=== PATIENT | male | born 1975 | race American Indian/Alaskan Native ===

== ENCOUNTER 2022-08-15 15:38 | Emergency (ER) | payer SELFPAY ==
--- NOTE | ~2022-08-15 | US_ITS ---
EXAMINATION: US ABDOMEN LIMITED CLINICAL INFORMATION: Upper abdominal pain. Assess gallbladder. COMPARISON: None available. TECHNIQUE: Real-time imaging of the right upper quadrant abdomen is limited to the gallbladder and common duct. FINDINGS: GALLBLADDER: The gallbladder is distended normally. The lumen is anechoic. There is no stone or sludge. No gallbladder wall thickening or subserosal edema or pericholecystic fluid. Negative sonographic Beard's sign. COMMON BILE DUCT: Normal in caliber measuring 0.4 cm in diameter. US/US abdomen limited IMPRESSION: No cholelithiasis, gallbladder wall thickening, or common ductal dilatation.
[2022-08-15 15:46] VITALS: BP 109/82; PULSE 109; RESP 19; TEMP 36.6; O2SAT 99; BMI 25.1
--- NOTE | 2022-08-15 15:53 | ED_ITS ---
[facility] - General Adult General Chief complaint: Abdominal Pain Stated complaint: severe stomach pains Time Seen by Provider: 08/15/22 17:57 Source: patient Mode of arrival: ambulatory History of Present Illness HPI narrative: 47-year-old male who denies any past medical history, occasional alcohol use, denies any IVDA and states that he has had some upper mid abdominal discomfort and not had a bowel movement for 2 days and denies any nausea, vomiting, diarrhea, fevers, chills, urinary symptoms and denies any history of renal colic or intra-abdominal surgeries. Related Data Allergies Allergy/AdvReac Type Severity Reaction Status Date / Time shrimp Allergy Angioedema Verified 08/15/22 15:46 Review of Systems Review of Systems: Pertinent positives and negatives as stated in [facility] Past Medical History Source: nursing notes reviewed Social History Social History Advance Directives: No Advance Directives Information Provided: Yes Physical Exam ED Vital Signs: Vital Signs - 24 hr 08/15/22 15:46 Temperature 98 F Pulse Rate 109 H Respiratory Rate 19 Blood Pressure 109/82 Pulse Oximetry 99 Oxygen Delivery Method Room Air BMI result Body Mass Index 25.1 VITAL SIGNS: Reviewed. GENERAL: Well developed, well nourished, in no acute distress. HEAD: Normocephalic/atraumatic EYES: PERRLA, EOMI EARS: Ext canals without abnormality NOSE: Nares patent bilateral OROPHARYNX: no oral lesions noted, posterior pharynx clear NECK: Supple, no adenopathy LUNGS: Normal breath sounds. No adventitious sounds or accessory muscle use. SpO2<99> CARDIOVASCULAR: Regular rate and rhythm without noted murmurs ABDOMEN: Soft, minimal mid upper abdominal discomfort without rebound, no palpable masses, no evidence of umbilical hernias, non-distended with bowel sounds. MUSCULOSKELETAL: No tenderness, deformities, or effusions noted on gross inspec tion. EXTREMITIES: No cyanosis, clubbing or edema. SKIN: Inspection of the skin reveals no rashes NEUROLOGIC: Alert and oriented x 4. Strength and sensation to light touch were grossly intact x 4. Course Course Course Narrative: RME- 47-year-old male presents for evaluation of upper abdominal pain with nausea. He also complains of heartburn. Symptoms appear to be worse after eating. Labs ordered Medical Decision Making Medical Decision Making [facility] Narrative: 47-year-old male with history and clinical presentation after review of all investigations most consistent with suspected constipation as in the absence leukocytosis, elevated temperature and clinical exam it is not consistent with a n appendicitis or cholecystitis although ultrasound was negative for evidence to suggest cholecystitis. No evidence to suggest pancreatitis, there is a possibility of mild gastritis but gave patient instructions regarding constipation and he is otherwise discharged home in stable condition. Findings also not consistent with a renal colic or obstruction. Differential Diagnosis Please see the discussion above Lab Data Please see the discussion above 08/15/22 15:59 08/15/22 15:59 Labs: Lab Results 08/15/22 08/15/22 Range/Units 15:59 15:59 WBC 7.2 (4.8-10.8) X10*3/uL RBC 5.80 (4.60-5.80) X10*6/uL Hgb 15.4 (14.0-18.0) g/dl Hct 46.0 (42.0-52.0) % MCV 79.3 L (80.0-98.0) fL MCH 26.6 L (27.0-33.0) pg MCHC 33.5 (31.0-36.0) g/dl RDW 13.6 (11.0-16.0) % Plt Count 291 (160-400) X10*3/uL MPV 10.7 (9.4-12.4) fL Immature Gran % (Auto) 0.4 (0.0-0.4) % Neut % (Auto) 51.1 (45-73) % Lymph % (Auto) 36.1 (20-40) % [place] % (Auto) 9.2 (2-11) % Eos % (Auto) 2.4 (0-4) % Baso % (Auto) 0.8 (0-2) % Lymph # (Auto) 2.6 (1.2-4.9) X10*3/uL [place] # (Auto) 0.7 (0.1-1.2) X10*3/uL Eos # (Auto) 0.2 (0.0-0.4) X10*3/uL Baso # (Auto) 0.1 (0.0-0.2) X10*3/uL Abs Immat Gran (auto) 0.03 (0.00-0.03) X10*3/uL Absolute Neuts (auto) 3.7 (2.0-8.3) x10*3/uL Absolute Nucleated RBC 0.000 (0.0-0.012) X10*3/uL Nucleated RBC % (auto) 0.0 (0.0-0.2) /100WBC Sodium 138 (135-145) mmol/L Potassium 4.2 (3.3-5.1) mmol/L Chloride 105 (96-108) mmol/L Carbon Dioxide 24 (22-29) mmol/L Anion Gap 13 (12-20) BUN 7 L (9-16) mg/dL Creatinine 1.03 (0.5-1.4) mg/dL Estim Creat Clear Calc 90.5 Estimated GFR > 60 Random Glucose 106 (60-115) mg/dL Calcium 9.6 (8.4-10.2) mg/dL Total Bilirubin 1.9 H (0.0-1.0) mg/dL AST 20 (5-37) U/L ALT 24 (0-40) U/L Alkaline Phosphatase 67 (39-117) U/L Total Protein 6.5 (6.5-8.0) g/dL Albumin 4.3 (3.5-5.0) g/dL Lipase 37 (8-78) U/L Radiology Impression Radiologist Impression: My interpretation is in agreement with radiology's impression Discharge Plan Discharge Clinical Impression: Constipation, Abdominal discomfort, Gastritis Patient Disposition: Home, Self-Care Instructions: Constipation (ED), High Fiber Diet (ED), Fleet Enema (ED), Diet for Stomach Ulcers and Gastritis (ED), Gastritis (ED) Additional Instructions: 1. Please increase the amount of water intake over the next 2-3 days, watch your dietary consumption and please review the recommendations for gastritis. 2. Follow-up with your primary care provider in the next 2-3 days. 3. Recommend [id number] MiraLax, daily, and till you began having soft daily bowel movements. Return to the ER for any worsening symptoms. Stand Alone Forms: Work/School Release
[2022-08-15 16:03] LABS: MANUAL DIFF FLAG NO
[2022-08-15 16:06] LABS: Basophils Absolute Auto 0.1 X10*3/uL (0.0-0.2); Basophils Percent Auto 0.8 % (0-2); Eosinophils Absolute Auto 0.2 X10*3/uL (0.0-0.4); Eosinophils Percent Auto 2.4 % (0-4); Hemoglobin 15.4 g/dl (14.0-18.0); Imm Gran Abs Auto 0.03 X10*3/uL (0.00-0.03); Imm Gran Pct Auto 0.4 % (0.0-0.4); Lymphocytes Absolute Auto 2.6 X10*3/uL (1.2-4.9); Lymphocytes Percent Auto 36.1 % (20-40); Mean Corpuscular HGB Conc 33.5 g/dl (31.0-36.0); Mean Corpuscular Hemoglobin 26.6 pg (27.0-33.0); Mean Corpuscular Volume 79.3 fL (80.0-98.0); Mean Platelet Volume 10.7 fL (9.4-12.4); Monocytes Absolute Auto 0.7 X10*3/uL (0.1-1.2); Monocytes Percent Auto 9.2 % (2-11); Neutrophils Absolute Auto 3.7 x10*3/uL (2.0-8.3); Neutrophils Percent Auto 51.1 % (45-73); Platelet Count 291 X10*3/uL (160-400); Red Cell Distribution Width 13.6 % (11.0-16.0); White Blood Count 7.2 X10*3/uL (4.8-10.8)
[2022-08-15 16:19] LABS: Alanine Aminotransferase 24 U/L (0-40); Albumin Level 4.3 g/dL (3.5-5.0); Alkaline Phosphatase 67 U/L (39-117); Anion Gap 13 (12-20); Aspartate Amino Transferase 20 U/L (5-37); Bilirubin Total 1.9 mg/dL (0.0-1.0); Blood Urea Nitrogen 7 mg/dL (9-16); Calcium 9.6 mg/dL (8.4-10.2); Carbon Dioxide 24 mmol/L (22-29); Chloride 105 mmol/L (96-108); Creatinine Clr Calc Pharmacy 90.5; Estimated Glomerular Filt Rate > 60; Glucose Random 106 mg/dL (60-115); Lipase 37 U/L (8-78); Potassium 4.2 mmol/L (3.3-5.1); Sodium 138 mmol/L (135-145); Total Protein 6.5 g/dL (6.5-8.0)
== END 2022-08-15 19:08 | disposition home or self-care (01) ==
PROVIDERS: Physician Assistant; Emergency Provider Student in an Organized Health Care Education/Training Program
DX: K59.00 Constipation, unspecified (principal); R10.10 Upper abdominal pain, unspecified; K29.70 Gastritis, unspecified, without bleeding; F19.10 Other psychoactive substance abuse, uncomplicated
CPT/HCPCS: 36415; 76705; 80053; 83690; 85025; 99282; 99284

== ENCOUNTER 2022-08-27 16:45 | Emergency (ER) | payer SELFPAY ==
[2022-08-27 17:09] VITALS: BP 134/85; PULSE 114; RESP 20; TEMP 36.4; O2SAT 97; BMI 23.3
--- NOTE | 2022-08-27 17:11 | ED.GENADULT ---
HPI - General Adult General Chief complaint: Dental/Oral Stated complaint: toothache Time Seen by Provider: 08/27/22 17:09 Source: patient, RN notes reviewed and old records reviewed Mode of arrival: ambulatory Limitations: no limitations History of Present Illness HPI narrative: Patient reports left dental pain and facial pain for the last 4 days. Patient reports that he fractured a tooth of the left lower jaw ??eating hard candy. ? He now has 10/10 pain leading to his left ear Denies any pus or drainage from the tooth No difficulty swallowing or breathing Related Data Previous Rx's Medication Instructions Recorded amoxicillin 500 mg tablet 500 mg PO TID #21 tabs 08/27/22 ibuprofen 600 mg tablet 600 mg PO TID PRN pain #20 tabs 08/27/22 oxycodone 5 mg tablet 5 mg PO Q6H PRN severe pain (scale 08/27/22 score 7-10) #12 tabs Allergies Allergy/AdvReac Type Severity Reaction Status Date / Time shrimp Allergy Angioedema Verified 08/27/22 17:13 Review of Systems ENT: Denies ear discharge, Reports otalgia, Reports facial pain and Reports mouth pain PMFSH Social History Social History Advance Directives: No Advance Directives Information Provided: Yes Physical Exam ED Vital Signs: Vital Signs - 24 hr 08/27/22 17:09 Temperature 97.6 F Pulse Rate 114 H Respiratory Rate 20 Blood Pressure 134/85 Pulse Oximetry 97 Oxygen Delivery Method Room Air BMI result Body Mass Index 23.3 Const General: healthy appearing, comfortable, no acute distress, alert and awake Nutritional Appearance: well nourished Orientation/consciousness: patient oriented x3 HENMT Other: Dental fracture to the left 1st molar on the lower drop. Minimal surrounding erythema, no clear abscess, no drainage. Head: Yes normocephalic and Yes atraumatic Ears: external ears normal, TM's normal bilaterally, TM normal on the right, TM normal on the left and EAC's normal Eyes Eyelids: Yes eyelids normal Conjunctivae: conjunctivae normal Sclerae: sclerae normal Corneas: corneas normal Pupils: Equal, round and reactive pupils present EOM: EOMs intact bilaterally Resp Effort & Inspection: normal respiratory effort, able to speak in complete sentences, no audible wheezes and not labored Auscultation: clear to auscultation bilaterally Skin General skin exam: no rashes or lesions noted and elasticity normal Neuro General: patient oriented x3 Cranial nerves: Yes Equal, round and reactive pupils present and Yes Bilaterally intact EOM present Cognition (Neuro): normal cognition Extrem Other: Moving all extremities well without any obvious deformities Medical Decision Making Medical Decision Making MDM Narrative: Patient has acute dental trauma dental fracture from chin and candy. He will be treated with amoxicillin for likely infection and referred to his dentist. He was treated with amoxicillin analgesia Differential Diagnosis Acute dental trauma Facial pain Otitis media Otitis externa Atypical facial pain Discharge Plan Discharge Clinical Impression: Dental trauma, Acute facial pain Patient Disposition: Home, Self-Care Instructions: Toothache (ED) Additional Instructions: Take the amoxicillin 3 times daily for 7 days Use ibuprofen as needed for pain Use oxycodone for severe, breakthrough pain This will make you sleepy, not drink alcohol or operate machinery after taking You may also use topical benzocaine which you can get at the pharmacy Follow-up with a dentist to have the broken tooth taking care of Prescriptions: New amoxicillin 500 mg tablet 500 mg PO TID Qty: 21 0RF ibuprofen 600 mg tablet 600 mg PO TID PRN (Reason: pain) Qty: 20 0RF oxycodone 5 mg tablet 5 mg PO Q6H PRN (Reason: severe pain (scale score 7-10)) Qty: 12 0RF Rx Instructions: Partial Fill upon patient request. Stand Alone Forms: Work/School Release Interventions: ED Discharge Assessment Last Done: 08/27/22 17:21 Discharge Date/Time: 08/27/22 17:24
== END 2022-08-27 17:24 | disposition home or self-care (01) ==
PROVIDERS: Emergency Provider Emergency Medicine
DX: K08.89 Other specified disorders of teeth and supporting structures (principal); R51.9 Headache, unspecified
CPT/HCPCS: 99282; 99283

== ENCOUNTER 2022-10-15 23:26 | Emergency (ER) | payer SELFPAY ==
[2022-10-15 23:55] VITALS: BP 124/83; PULSE 84; RESP 16; TEMP 36.6; O2SAT 99; BMI 23.1
--- NOTE | 2022-10-16 00:59 | ED_ITS ---
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 of MRSA infection Related Data Previous Rx's Medication Instructions Recorded amoxicillin 500 mg tablet 500 mg PO TID #21 tabs 08/27/22 ibuprofen 600 mg tablet 600 mg PO TID PRN pain #20 tabs 08/27/22 oxycodone 5 mg tablet 5 mg PO Q6H PRN severe pain (scale 08/27/22 score 7-10) #12 tabs cephalexin 500 mg capsule 500 mg PO QID 10 days #40 caps 10/16/22 doxycycline hyclate 100 mg tablet 100 mg PO BID #20 tabs 10/16/22 Allergies Allergy/AdvReac Type Severity Reaction Status Date / Time shrimp Allergy Angioedema Verified 08/27/22 17:13 Review of Systems Review of Systems: Yes all other systems are reviewed and are negative [facility] Social History Social History Advance Directives: No Advance Directives Information Provided: Yes Physical Exam Vital Signs: Vital Signs: Last Vital Signs Temp 98 F 10/15/22 23:55 Pulse 84 10/15/22 23:55 Resp 16 10/15/22 23:55 BP 124/83 10/15/22 23:55 Pulse Ox 99 10/15/22 23:55 O2 Del Method Room Air 10/15/22 23:55 BMI result Body Mass Index 23.1 Appearance: Alert. Oriented X3. No acute distress. Neck: Normal inspection. Neck supple. CVS: Normal heart rate and rhythm. Pulses normal. Respiratory: No respiratory distress. Equal air entry bilateral, Abdomen: Soft and nontender. Bowel sounds are present, Skin: Skin warm and dry. Normal skin color. Circular lesions at the upper back and front of the chest? MRSA Extremities: No lower extremity edema. No calf tenderness Neuro: Oriented X 3. Medical Decision Making Medical Decision Making MDM Narrative: Patient clinically with MRSA lesion culture was taken will give patient doxycycline and cephalexin Discharge Plan Discharge Clinical Impression: MRSA (methicillin resistant Staphylococcus aureus) infection Patient Disposition: Home, Self-Care Instructions: MRSA (Methicillin-Resistant Staphylococcus Aureus) (ED) Additional Instructions: Possible you have MRSA infection cultures are pending Take antibiotic as prescribed Report to the ER if worsening of the rash Prescriptions: New cephalexin 500 mg capsule 500 mg PO QID 10 Days Qty: 40 0RF doxycycline hyclate 100 mg tablet 100 mg PO BID Qty: 20 0RF No Action amoxicillin 500 mg tablet 500 mg PO TID Qty: 21 0RF ibuprofen 600 mg tablet 600 mg PO TID PRN (Reason: pain) Qty: 20 0RF oxycodone 5 mg tablet 5 mg PO Q6H PRN (Reason: severe pain (scale score 7-10)) Qty: 12 0RF Rx Instructions: Partial Fill upon patient request.
[2022-10-16] MEDS: Doxycycline Monohydrate 100 MG CAPSULE PO (01:12)
[2022-10-16] MEDS: cephALEXin 500 MG CAPSULE PO (01:12)
== END 2022-10-16 01:33 | disposition home or self-care (01) ==
PROVIDERS: Emergency Provider Internal Medicine
DX: A49.02 Methicillin resistant Staphylococcus aureus infection, unspecified site (principal); Z79.899 Other long term (current) drug therapy
CPT/HCPCS: 87070; 87205; 99282; 99283

== ENCOUNTER 2022-10-29 17:13 | Emergency (ER) | payer SELFPAY ==
[2022-10-29 17:19] VITALS: BP 123/74; PULSE 98; RESP 16; TEMP 37.2; O2SAT 98; BMI 25.8
--- NOTE | 2022-10-29 17:38 | ED_ITS ---
HPI - Skin/Abscess/Foreign Bdy General Chief complaint: Skin/Abscess/Foreign Body Stated complaint: rash on neck Time Seen by Provider: 10/29/22 17:45 Source: patient and RN notes reviewed Mode of arrival: ambulatory Limitations: no limitations History of Present Illness HPI narrative: This is a [id number]-male presenting to the emergency department with complaints of ongoing rash x 2 weeks. Pt was seen here several weeks ago for the same rash. There was concern for MRSA infection and had a culture taken which was negative. He was discharged on keflex and doxycyline and was also given topical miconazole cream. He was unable to fern picker any of these medications at the pharmacy as he had to wait for his paycheck to afford these medications until 2 days ago. He states that the rash has improved since using these medications but has not resolved. Pt states that the rash is itchy. Denies any fevers, chills, nausea, vomiting or diarrhea. No other complaints or concerns at this time. MD complaint: rash Onset (ago): week(s) Tetanus up to date: unsure Location: face and back Severity: moderate Quality: pruritic Pain Consistency: constant Relieving factors: none Exacerbating factors: none Context: none Associated symptoms: denies other symptoms Treatments prior to arrival: none Related Data Previous Rx's Medication Instructions Recorded amoxicillin 500 mg tablet 500 mg PO TID #21 tabs 08/27/22 ibuprofen 600 mg tablet 600 mg PO TID PRN pain #20 tabs 08/27/22 oxycodone 5 mg tablet 5 mg PO Q6H PRN severe pain (scale 08/27/22 score 7-10) #12 tabs cephalexin 500 mg capsule 500 mg PO QID 10 days #40 caps 10/16/22 doxycycline hyclate 100 mg tablet 100 mg PO BID #20 tabs 10/16/22 miconazole nitrate 2 % topical 1 appl topical BID #14 grams 10/16/22 cream miconazole nitrate 2 % topical 1 appl topical BID #28.4 grams 10/29/22 cream (Antifungal (miconazole)) Allergies Allergy/AdvReac Type Severity Reaction Status Date / Time shrimp Allergy Angioedema Verified 08/27/22 17:13 Review of Systems Review of Systems: Yes all other systems are reviewed and are negative PMFSH Past Medical History Attestation statement: The following information was validated with the patient. Social History Social History Advance Directives: No Advance Directives Information Provided: No Physical Exam Vital Signs: Vital Signs: Last Vital Signs Temp 98.9 F 10/29/22 17:19 Pulse 98 10/29/22 17:19 Resp 16 10/29/22 17:19 BP 123/74 10/29/22 17:19 Pulse Ox 98 10/29/22 17:19 O2 Del Method Room Air 10/29/22 17:19 BMI result Body Mass Index 25.8 Const: Other: General: Awake, alert, and oriented X3. No acute distress. HEENT: Normal inspection CVS: Normal heart rate and rhythm. Pulses normal. Respiratory: No respiratory distress Skin: Upper back with circular, raised edge, crusting macular rash with central clearing noted. No fluctuance or drainage. No erythema noted. Neuro: Oriented X 3. No motor deficit. No sensory deficit. Medical Decision Making Medical Decision Making MDM Narrative: 47 y/o M presenting to the ER for evaluation of rash on upper back x several weeks. On arrival, vital signs are stable. Review of last ER visit and skin culture revealing normal skin henrietta. Rash appears to be fungal. Pt does not use IVDA to put him at risk for other infectious diseases/rashes. DDX including MRSA, cellulitis, folliculitis. Given presentation, will treat with miconazole cream. Given referral to dermatology if symptoms do not resolve. Advised to use prescription as directed and to be patient as this takes time to resolve. Pt understands and agrees with plan. Given return precautions. Differential Diagnosis Differential Diagnoses: The differential diagnosis associated with the presentation includes see above Social Determinants Patient?s care significantly limited by Social Determinants of Health including: Low income (Pt was unable to afford medication until paycheck. Given information on [employer] as well as GoodRX coupons) Discharge Plan Discharge Clinical Impression: Ringworm Patient Disposition: Home, Self-Care Additional Instructions: Use prescribed medication as directed. Keep area clean and dry. If any new or worsening symptoms occur, please return. You may also follow up [facility] ?[address], [place] [address] Prescriptions: New miconazole nitrate [Antifungal (miconazole)] 2 % cream 1 appl topical BID Qty: 28.4 0RF No Action cephalexin 500 mg capsule 500 mg PO QID 10 Days Qty: 40 0RF doxycycline hyclate 100 mg tablet 100 mg PO BID Qty: 20 0RF miconazole nitrate 2 % cream 1 appl topical BID Qty: 14 0RF amoxicillin 500 mg tablet 500 mg PO TID Qty: 21 0RF ibuprofen 600 mg tablet 600 mg PO TID PRN (Reason: pain) Qty: 20 0RF oxycodone 5 mg tablet 5 mg PO Q6H PRN (Reason: severe pain (scale score 7-10)) Qty: 12 0RF Rx Instructions: Partial Fill upon patient request. Interventions: ED Discharge Assessment Last Done: 10/29/22 17:45 Discharge Date/Time: 10/29/22 17:52
== END 2022-10-29 17:52 | disposition home or self-care (01) ==
PROVIDERS: Emergency Provider Internal Medicine
DX: B35.9 Dermatophytosis, unspecified (principal); R21 Rash and other nonspecific skin eruption; Z79.899 Other long term (current) drug therapy
CPT/HCPCS: 99282; 99283

== ENCOUNTER 2023-04-04 09:26 | Emergency (ER) | payer SELFPAY ==
[2023-04-04 09:43] VITALS: BP 122/64; PULSE 104; RESP 16; TEMP 36.6; O2SAT 98; BMI 24.3
--- NOTE | 2023-04-04 09:57 | ED.GENADULT ---
HPI - General Adult General Chief complaint: Dental/Oral Stated complaint: dental pain Time Seen by Provider: 04/04/23 09:39 Source: patient Mode of arrival: ambulatory Limitations: no limitations History of Present Illness HPI narrative: Patient is a 48-year-old male presenting to the emergency department with complaint of left lower jaw pain due to a known cavity. Patient states that he recently moved here from [place] and does not have a dentist here. States he has not seen a dentist in approximately 2 years. History of dental caries requiring extraction. Denies any fever, difficulty swallowing, shortness of breath. States pain radiates to ear at times. MD complaint: Dental pain Onset (ago): day(s) Location: mouth Severity: severe Quality: aching Pain Consistency: constant Relieving factors: none Exacerbating factors: none Associated symptoms: denies other symptoms Treatments prior to arrival: none Related Data Previous Rx's Medication Instructions Recorded amoxicillin 500 mg tablet 500 mg PO TID #21 tabs 08/27/22 ibuprofen 600 mg tablet 600 mg PO TID PRN pain #20 tabs 08/27/22 oxycodone 5 mg tablet 5 mg PO Q6H PRN severe pain (scale 08/27/22 score 7-10) #12 tabs cephalexin 500 mg capsule 500 mg PO QID 10 days #40 caps 10/16/22 doxycycline hyclate 100 mg tablet 100 mg PO BID #20 tabs 10/16/22 miconazole nitrate 2 % topical 1 appl topical BID #14 grams 10/16/22 cream miconazole nitrate 2 % topical 1 appl topical BID #28.4 grams 10/29/22 cream (Antifungal (miconazole)) amoxicillin 875 mg-potassium 1 tab PO BID #14 tabs 04/04/23 clavulanate 125 mg tablet ibuprofen 600 mg tablet 600 mg PO Q6H PRN pain #20 tabs 04/04/23 oxycodone 5 mg tablet 5 mg PO Q8H PRN severe pain (scale 04/04/23 score 7-10) #6 tabs Allergies Allergy/AdvReac Type Severity Reaction Status Date / Time crayfish Allergy Angioedema Verified 04/04/23 09:42 shrimp Allergy Angioedema Verified 08/27/22 17:13 Review of Systems Review of Systems: As per HPI. Yes all other systems are reviewed and are negative Constitutional: Constitutional: Reports as per HPI PMFSH Social History Social History Advance Directives: No Physical Exam ED Vital Signs: Vital Signs - 24 hr 04/04/23 09:43 Temperature 98 F Pulse Rate 104 H Respiratory Rate 16 Blood Pressure 122/64 Pulse Oximetry 98 Oxygen Delivery Method Room Air BMI result Body Mass Index 24.3 Vital signs have been reviewed and appear to be correct. Blood pressure normal. Heart rate slightly tachycardic. Respiratory rate normal. Temperature normal. Oxygen saturation normal. Const General: cooperative, healthy appearing and no acute distress Orientation/consciousness: oriented to person, oriented to place, oriented to time and patient oriented x3 Limitations: no limitations HENMT Head: Yes normocephalic and Yes atraumatic Ears: external ears normal, TM's normal bilaterally and EAC's normal General nose exam: Normal external nose present Face and sinus: Yes face symmetric Mouth: Normal oral and palatal mucosa present, lip normal, tongue normal, oropharynx normal, moist mucous membranes, no muffled voice, No abnormal TMJ and no trismus Teeth and gingiva: abnormal tooth and associated gingiva lower left second molar tender and other (gingiva erythematous); without any associated gingival edema and without associated gingival fluctuance and caries Teeth image: 1. #18 large caries without exposed pulp Throat: Yes posterior oropharynx normal, Yes tonsils normal, Yes uvula midline and No uvular edema Eyes Pupils: Equal, round and reactive pupils present Neck Neck: Yes normal visual inspection and Yes supple Resp Effort & Inspection: normal respiratory effort and able to speak in complete sentences Auscultation: clear to auscultation bilaterally Cardio Rate: regular rate Rhythm: regular rhythm Heart sounds: S1 normal heart sound present and S2 normal heart sound present GI Palpation (GI): Soft to palpation and nontender Auscultation: normoactive bowel sounds General: Yes no CVA tenderness Back/Spine/Pelvis Back: no CVA tenderness Skin General skin exam: elasticity normal and turgor normal Neuro General: oriented to person, oriented to place, oriented to time, patient oriented x3, moves all extremities, no focal motor deficits and CN's II-XI intact bilaterally Cranial nerves: Yes Equal, round and reactive pupils present Cognition (Neuro): normal cognition Extrem General: Yes full ROM, Yes no pedal edema and Yes no calf tenderness Psych Mental Status: mental status grossly normal Affect: normal affect Thought process: Normal thought process present Medical Decision Making Medical Decision Making [facility] Narrative: Patient is a 48-year-old male presenting to the emergency department with complaint of left lower jaw pain due to a known cavity. On exam patient is awake, A+Ox3, VS WNL, afebrile, normal neurological exam without focal deficits, physical exam findings as above. Given reported symptoms and physical exam findings, initial differential includes dental caries, dental pain, abscess. No evidence of Kulwant's angina. Will treat with antibiotics and pain medication. No concerns on review of [employer]. Return precautions discussed at bedside. Patient verbalized understanding of and agreement with plan. Differential Diagnosis Differential Diagnoses: The differential diagnosis associated with the presentation includes As per [facility] External Record Review External record reviewed: Inpatient record, Office record and Outpatient record Prescription Management I considered prescription management with: Pain Medication and Antibiotic Discharge Plan Discharge Clinical Impression: Toothache, Dental caries Patient Disposition: Home, Self-Care Instructions: Toothache (ED) Additional Instructions: You were evaluated in the emergency department today for complaint of dental pain. You are being treated for a dental infection with antibiotics. You were also prescribed pain medication. Please complete the full course of antibiotics as prescribed even if your symptoms improve. IT IS IMPORTANT THAT YOU FOLLOW UP WITH YOUR DENTIST. You were provided with a list of dental clinics at your visit today. Return to the emergency department if you develop worsening pain, swelling, difficulty swallowing, difficulty breathing, fever, or any other concerning symptoms. Prescriptions: New amoxicillin-pot clavulanate 875-125 mg tablet 1 tab PO BID Qty: 14 0RF oxycodone 5 mg tablet 5 mg PO Q8H PRN (Reason: severe pain (scale score 7-10)) Qty: 6 0RF Rx Instructions: Partial Fill upon patient request. ibuprofen 600 mg tablet 600 mg PO Q6H PRN (Reason: pain) Qty: 20 0RF No Action cephalexin 500 mg capsule 500 mg PO QID 10 Days Qty: 40 0RF doxycycline hyclate 100 mg tablet 100 mg PO BID Qty: 20 0RF miconazole nitrate 2 % cream 1 appl topical BID Qty: 14 0RF miconazole nitrate [Antifungal (miconazole)] 2 % cream 1 appl topical BID Qty: 28.4 0RF amoxicillin 500 mg tablet 500 mg PO TID Qty: 21 0RF ibuprofen 600 mg tablet 600 mg PO TID PRN (Reason: pain) Qty: 20 0RF oxycodone 5 mg tablet 5 mg PO Q6H PRN (Reason: severe pain (scale score 7-10)) Qty: 12 0RF Rx Instructions: Partial Fill upon patient request.
== END 2023-04-04 09:53 | disposition home or self-care (01) ==
PROVIDERS: Emergency Provider Emergency Medicine
DX: K02.9 Dental caries, unspecified (principal)
CPT/HCPCS: 99283; 99284